=== PATIENT | female | born 1930 | race African-American/Black ===

== ENCOUNTER → 2017-02-18 | Outpatient (CLI) | payer MEDICARE, BC ==
[~2017-02-18] MED LIST: AMLO10TA80 PO; ASPI-1159 PO; MELO-106 PO; MONT10TA24 PO; PANT40TA4
== END | disposition home or self-care (01) ==
LOC: NM 07:39
PROVIDERS: ATTEND Internal Medicine
DX: E05.90 Thyrotoxicosis, unspecified without thyrotoxic crisis or storm (principal)
CPT/HCPCS: 78014; A9516

== ENCOUNTER 2017-10-22 08:00 | Inpatient (IN) | payer MEDICARE, BC ==
[~2017-10-22] VITALS: Ht 163.8 cm; Wt 81.2 kg
[~2017-10-22 08:00] MED LIST changes: -PANT40TA4; +PANT40TA4 PO; +TAP5 PO
[2017-10-22] MEDS ORDERED: SODIUM CHLORIDE 0.9% 1,000 ML IV ONE (08:36)
[2017-10-22] MEDS ORDERED: MECLIZINE 25MG TABLET PO ONE (08:45)
[2017-10-22 09:19] LABS: HEMATOCRIT. 40.7 % (36.0-48.0); HEMOGLOBIN. 13.2 g/dL (12.0-16.0); MEAN CORPUSCULAR HEMOGLOBIN 26.7 pg (28.0-32.0); MEAN CORPUSCULAR VOLUME 82.4 fL (81.0-99.0); PLATELET 241 x1000/uL (130-400); RED BLOOD CELL COUNT 4.94 mill/uL (4.2-5.4); RED CELL DISTRIBUTION WIDTH 25.9 % (11.6-14.6)
[2017-10-22 09:26] LABS: CHLORIDE 109 mEq/L (98-107)
[2017-10-22 09:28] LABS: PARTIAL THROMBOPLASTIN TIME 29.5 sec (23.4-31.0); PROTHROMBIN TIME 10.5 sec (9.1-11.1)
[2017-10-22] MEDS ORDERED: ASPIRIN 325MG EC TABLET PO ONE (09:30)
[2017-10-22 11:14] LABS: PLATELET ESTIMATE NORMAL
[2017-10-22] MEDS ORDERED: FOLI-43 MT (11:47)
[2017-10-22] MEDS ORDERED: FERR325T6 MT (11:48)
[2017-10-22] MEDS ORDERED: DICL100G31 TP (13:46)
[2017-10-22] MEDS ORDERED: MONT10TA21 PO (13:46)
[2017-10-22] MEDS ORDERED: SULF1TAB44 MT (13:46)
[2017-10-22] MEDS ORDERED: DOCU250C69 PO (13:46)
[2017-10-22] MEDS ORDERED: TAP5 PO (13:47)
[2017-10-22 14:00] VITALS: BP 140/78
[2017-10-22 14:55] VITALS: BP 140/78
[2017-10-22 16:00] VITALS: BP 131/83
[2017-10-22] MEDS: AMLODIPINE 10MG TABLET PO SCH (16:42)
[2017-10-22] MEDS ORDERED: [UNRECOGNIZED DRUG - OTHER] MT SCH (17:00)
[2017-10-22] MEDS ORDERED: MEDICATION NOT ON FORMULARY EA (Diclofenac Sodium 100 GM) TP SCH (17:00)
[2017-10-22] MEDS ORDERED: SULFAMETHOXAZOLE MT SCH (17:00)
[2017-10-22] MEDS ORDERED: TRIMETHOPRIM MT SCH (17:00)
[2017-10-22] MEDS ORDERED: MEDICATION NOT ON FORMULARY EA (Ferrous Sulfate 1 TAB) MT SCH (17:00)
[2017-10-22] MEDS: FERROUS SULFATE 325MG TABLET PO SCH (18:02)
[2017-10-22 20:00] VITALS: BP 105/66
[2017-10-22] MEDS: MONTELUKAST SODIUM 10MG TABLET PO SCH (20:51)
[2017-10-23] VITALS: BP 111/76
[2017-10-23 04:00] VITALS: BP_SYST 101; BP_SYST 110; BP_SYST 118; BP_DIAS 67; BP_DIAS 71; BP_DIAS 76
[2017-10-23 08:00] VITALS: BP 111/63
[2017-10-23] MEDS: METHIMAZOLE 5MG TABLET PO SCH (08:52)
[2017-10-23] MEDS: FOLIC ACID 1MG TABLET PO SCH (08:53)
[2017-10-23] MEDS: DOCUSATE SODIUM 250MG CAPSULE PO SCH (08:53)
[2017-10-23] MEDS: PANTOPRAZOLE 40MG DR TABLET PO SCH (08:58)
[2017-10-23] MEDS: AMLODIPINE 10MG TABLET PO SCH (08:58)
[2017-10-23] MEDS: FERROUS SULFATE 325MG TABLET PO SCH ×2 (08:58→19:13)
[2017-10-23] MEDS ORDERED: MEDICATION NOT ON FORMULARY EA (Pantoprazole Sodium 40 MG) PO SCH (09:00)
[2017-10-23] MEDS ORDERED: MEDICATION NOT ON FORMULARY EA (Docusate Sodium 250 MG) PO SCH (09:00)
[2017-10-23] MEDS ORDERED: MEDICATION NOT ON FORMULARY EA (Folic Acid 1 TAB) MT SCH (09:00)
[2017-10-23] MEDS ORDERED: FERROUS SULFATE 325MG TABLET PO SCH (09:00)
[2017-10-23 12:00] VITALS: BP_SYST 112; BP_SYST 119; BP_SYST 123; BP_DIAS 61; BP_DIAS 70; BP_DIAS 76
[2017-10-23 16:00] VITALS: BP 121/71
[2017-10-23 20:00] VITALS: BP_SYST 111; BP_SYST 98; BP_DIAS 61; BP_DIAS 73
[2017-10-23] MEDS: MONTELUKAST SODIUM 10MG TABLET PO SCH (21:09)
[2017-10-24] VITALS: BP 98/53
[2017-10-24 04:00] VITALS: BP 136/56
[2017-10-24 08:00] VITALS: BP_SYST 101; BP_SYST 123; BP_SYST 126; BP_DIAS 61; BP_DIAS 79; BP_DIAS 81
[2017-10-24] MEDS: DOCUSATE SODIUM 250MG CAPSULE PO SCH (08:33)
[2017-10-24] MEDS: FOLIC ACID 1MG TABLET PO SCH (08:33)
[2017-10-24] MEDS: AMLODIPINE 10MG TABLET PO SCH (08:33)
[2017-10-24] MEDS: PANTOPRAZOLE 40MG DR TABLET PO SCH (08:33)
[2017-10-24] MEDS: FERROUS SULFATE 325MG TABLET PO SCH (08:33)
[2017-10-24] MEDS: METHIMAZOLE 5MG TABLET PO SCH (08:33)
[2017-10-24 12:00] VITALS: BP 120/65
[2017-10-24 13:48] VITALS: BP 122/74
== END 2017-10-24 15:13 | disposition home or self-care (01) | DRG 149 ==
LOC: ER 08:00 → 6WST 10:23 → EDBEDREQ 10:25 → EDBEDREQTM 10:26 → ENRESERV 12:09
PROVIDERS: ADMIT Internal Medicine; ATTEND Internal Medicine
DX: R42 Dizziness and giddiness (principal); D64.9 Anemia, unspecified; E05.90 Thyrotoxicosis, unspecified without thyrotoxic crisis or storm; E53.8 Deficiency of other specified B group vitamins; I10 Essential (primary) hypertension; I25.10 Atherosclerotic heart disease of native coronary artery without angina pectoris; I48.91 Unspecified atrial fibrillation; J45.909 Unspecified asthma, uncomplicated; K21.9 Gastro-esophageal reflux disease without esophagitis; K57.90 Diverticulosis of intestine, part unspecified, without perforation or abscess without bleeding; Z86.73 Personal history of transient ischemic attack (TIA), and cerebral infarction without residual deficits; Z88.0 Allergy status to penicillin; Z91.041 Radiographic dye allergy status; Z79.82 Long term (current) use of aspirin; R26.9 Unspecified abnormalities of gait and mobility
CPT/HCPCS: 36415; 70450; 70544; 70553; 71045; 80053; 83880; 84484; 85025; 85610; 85730; 93005; 93306; 93880; 96360; 96361; 97162; 97165; 99285; J7030; J8597

== ENCOUNTER → 2017-12-29 | Day surgery (SDC) | payer MEDICARE, BC ==
[~2017-12-29] MED LIST changes: -ASPI-1159 PO; +DICL100G31 TP; +DOCU250C69 PO; +FERR325T6 MT; +FOLI-43 MT; +LIDOCAINE HCL 1% 20ML VIAL (Pyxis) INJ ONE; -MELO-106 PO; +MONT10TA21 PO; -MONT10TA24 PO; +SODIUM BICARBONATE 4% (2.4MEQ) 5ML VIAL IV ONE
== END | disposition home or self-care (01) ==
LOC: RAD 10:23
PROVIDERS: ATTEND Internal Medicine Endocrinology, Diabetes & Metabolism
DX: E04.1 Nontoxic single thyroid nodule (principal); D64.9 Anemia, unspecified; I25.10 Atherosclerotic heart disease of native coronary artery without angina pectoris; I10 Essential (primary) hypertension; K21.9 Gastro-esophageal reflux disease without esophagitis; J45.909 Unspecified asthma, uncomplicated; I48.91 Unspecified atrial fibrillation; Z91.041 Radiographic dye allergy status; Z79.82 Long term (current) use of aspirin; Z79.899 Other long term (current) drug therapy; Z98.890 Other specified postprocedural states; Z88.0 Allergy status to penicillin
CPT/HCPCS: 10022; 76942; 88172; 88173; J3490

== ENCOUNTER 2019-01-09 21:09 | Inpatient (IN) | payer BC, MEDICARE ==
[~2019-01-09] VITALS: Ht 160 cm; Wt 64.9 kg
[~2019-01-09 21:09] MED LIST changes: -LIDOCAINE HCL 1% 20ML VIAL (Pyxis) INJ ONE; -SODIUM BICARBONATE 4% (2.4MEQ) 5ML VIAL IV ONE
[2019-01-10] MEDS ORDERED: MORPHINE SULFATE 4 MG/ML CPJ (NOT FOR IM USE) IV STA (00:31)
[2019-01-10] MEDS ORDERED: ONDANSETRON HCL 4MG/2ML INJ IV STA (00:31)
[2019-01-10] MEDS ORDERED: SODIUM CHLORIDE 0.9% 1,000 ML IV ONE (00:31)
[2019-01-10] MEDS ORDERED: MAGNESIUM/ALUMINUM HYDROXIDE/SIMETHICONE 30ML UDC PO STA (00:31)
[2019-01-10 00:57] LABS: HEMATOCRIT. 44.2 % (36.0-48.0); HEMOGLOBIN. 14.6 g/dL (12.0-16.0); MEAN CORPUSCULAR HEMOGLOBIN 26.3 pg (28.0-32.0); MEAN CORPUSCULAR VOLUME 79.8 fL (81.0-99.0); PLATELET 282 x1000/uL (130-400); RED BLOOD CELL COUNT 5.54 mill/uL (4.2-5.4); RED CELL DISTRIBUTION WIDTH 17.1 % (11.6-14.6)
[2019-01-10 00:58] LABS: CHLORIDE 101 mEq/L (98-107)
[2019-01-10 01:00] LABS: PROTHROMBIN TIME 10.7 sec (9.6-11.0)
[2019-01-10 01:15] LABS: PLATELET ESTIMATE NORMAL
[2019-01-10 06:20] VITALS: BP 119/82
[2019-01-10] MEDS ORDERED: DEXT 5%/0.45% NACL 1000ML 1,000 ML IV SCH (07:30)
[2019-01-10] MEDS ORDERED: POTA20TA82 MT (07:37)
[2019-01-10] MEDS ORDERED: FURO40TA5 PO (07:37)
[2019-01-10] MEDS ORDERED: MECL-109 PO (07:37)
[2019-01-10 08:00] VITALS: BP 127/77
[2019-01-10] MEDS: ONDANSETRON HCL 4MG/2ML INJ IV PRN (08:17)
[2019-01-10] MEDS: PANTOPRAZOLE SODIUM 40 MG/VIAL IV SCH (08:17)
[2019-01-10] MEDS: IPRATROPIUM/ALBUTEROL 0.5-3(2.5)MG/3ML NEB HHN SCH ×4 (10:42→21:34)
[2019-01-10 12:00] VITALS: BP 109/73
[2019-01-10] MEDS: DEXT 5%/0.45% NACL KCL 40MEQ/L 1,000 ML IV SCH (13:00)
[2019-01-10 16:00] VITALS: BP 119/68
[2019-01-10 20:00] VITALS: BP 112/75
[2019-01-11] VITALS: BP 120/73
[2019-01-11] MEDS: IPRATROPIUM/ALBUTEROL 0.5-3(2.5)MG/3ML NEB HHN SCH ×6 (01:30→20:00)
[2019-01-11 02:59] LABS: CLARITY URINE CLEAR (CLEAR); COLOR URINE YELLOW (YELLOW); KETONES URINE NEGATIVE (NEGATIVE); LEUKOCYTE ESTERASE URINE NEGATIVE (NEGATIVE); NITRITE URINE NEGATIVE (NEGATIVE); OCCULT BLOOD URINE NEGATIVE (NEGATIVE); PROTEIN URINE TRACE (NEGATIVE); SPECIFIC GRAVITY URINE 1.021 (1.005-1.030)
[2019-01-11 04:00] VITALS: BP 120/70
[2019-01-11 08:02] VITALS: BP 114/61
[2019-01-11] MEDS: PANTOPRAZOLE SODIUM 40 MG/VIAL IV SCH (08:30)
[2019-01-11 12:00] VITALS: BP 108/63
[2019-01-11] MEDS ORDERED: DIATR MEGLU/DIATRIZOATE SOLN 120ML ONE (12:55)
[2019-01-11] MEDS ORDERED: BARIUM SULFATE 176 GM SUSP.RECON ONE (13:30)
[2019-01-11] MEDS: DEXT 5%/0.45% NACL KCL 40MEQ/L 1,000 ML IV SCH (15:55)
[2019-01-11 16:00] VITALS: BP 116/69
[2019-01-11 20:00] VITALS: BP 113/68
[2019-01-12] VITALS (7 sets, daily range): BP systolic 92–126; BP diastolic 51–76
[2019-01-12] MEDS: IPRATROPIUM/ALBUTEROL 0.5-3(2.5)MG/3ML NEB HHN SCH ×3 (04:00→20:00)
[2019-01-12] MEDS: DEXT 5%/0.45% NACL KCL 40MEQ/L 1,000 ML IV SCH ×2 (04:36→20:26)
[2019-01-12] MEDS: ONDANSETRON HCL 4MG/2ML INJ IV PRN (05:01)
[2019-01-12] MEDS: PANTOPRAZOLE SODIUM 40 MG/VIAL IV SCH (08:25)
[2019-01-12] MEDS ORDERED: HYDROCODONE/ACETAMINOPHEN 5/325MG TABLET PO PRN (22:30)
[2019-01-13] VITALS: BP 128/67
[2019-01-13 04:00] VITALS: BP 120/73
[2019-01-13] MEDS: IPRATROPIUM/ALBUTEROL 0.5-3(2.5)MG/3ML NEB HHN SCH ×6 (04:00→21:27)
[2019-01-13] MEDS: DEXT 5%/0.45% NACL KCL 40MEQ/L 1,000 ML IV SCH (07:40)
[2019-01-13 08:00] VITALS: BP 112/66
[2019-01-13] MEDS: ACETAMINOPHEN 500MG TABLET PO PRN ×2 (08:26→17:10)
[2019-01-13] MEDS: PANTOPRAZOLE SODIUM 40 MG/VIAL IV SCH (08:26)
[2019-01-13 12:00] VITALS: BP 104/67
[2019-01-13] MEDS: ONDANSETRON HCL 4MG/2ML INJ IV SCH ×2 (13:00→17:20)
[2019-01-13 16:00] VITALS: BP 105/74
[2019-01-13 17:40] LABS: HEMATOCRIT. 35.8 % (36.0-48.0); HEMOGLOBIN. 11.7 g/dL (12.0-16.0); MEAN CORPUSCULAR HEMOGLOBIN 26.3 pg (28.0-32.0); MEAN CORPUSCULAR VOLUME 80.6 fL (81.0-99.0); MEAN PLATELET VOLUME 7.7 fl (7.4-10.4); PLATELET 217 x1000/uL (130-400); RED BLOOD CELL COUNT 4.45 mill/uL (4.2-5.4); RED CELL DISTRIBUTION WIDTH 16.8 % (11.6-14.6)
[2019-01-13 17:47] LABS: CHLORIDE 111 mEq/L (98-107)
[2019-01-13 20:00] VITALS: BP 104/65
[2019-01-13 20:00] LABS: PLATELET ESTIMATE NORMAL
[2019-01-13 21:31] LABS: T4 FREE 1.67 ng/dL (0.76-1.46)
[2019-01-14] VITALS: BP 116/71
[2019-01-14] MEDS: IPRATROPIUM/ALBUTEROL 0.5-3(2.5)MG/3ML NEB HHN SCH ×6 (01:48→21:11)
[2019-01-14 04:00] VITALS: BP 114/70
[2019-01-14] MEDS: ONDANSETRON HCL 4MG/2ML INJ IV SCH ×3 (05:38→16:52)
[2019-01-14 08:00] VITALS: BP 104/66
[2019-01-14] MEDS: PANTOPRAZOLE SODIUM 40 MG/VIAL IV SCH (08:19)
[2019-01-14] MEDS: DEXT 5%/0.45% NACL KCL 40MEQ/L 1,000 ML IV SCH (10:35)
[2019-01-14 12:00] VITALS: BP 108/64
[2019-01-14] MEDS: ACETAMINOPHEN 500MG TABLET PO PRN (14:56)
[2019-01-14 16:00] VITALS: BP 104/65
[2019-01-14 20:00] VITALS: BP 113/68
[2019-01-15] VITALS: BP 112/77
[2019-01-15] MEDS: IPRATROPIUM/ALBUTEROL 0.5-3(2.5)MG/3ML NEB HHN SCH ×6 (01:37→21:18)
[2019-01-15] MEDS: DEXT 5%/0.45% NACL KCL 40MEQ/L 1,000 ML IV SCH ×3 (03:31→18:52)
[2019-01-15 04:00] VITALS: BP 101/59
[2019-01-15] MEDS: ONDANSETRON HCL 4MG/2ML INJ IV SCH ×3 (06:32→18:53)
[2019-01-15 08:00] VITALS: BP 93/63
[2019-01-15] MEDS: PANTOPRAZOLE SODIUM 40 MG/VIAL IV SCH (09:51)
[2019-01-15 12:00] VITALS: BP 94/64
[2019-01-15 16:00] VITALS: BP 104/73
[2019-01-15 17:06] LABS: ANTI-NUCLEAR ANTIBODIES DIRECT Negative (Negative)
[2019-01-15 20:00] VITALS: BP 99/72
[2019-01-16] VITALS: BP 99/69
[2019-01-16] MEDS: IPRATROPIUM/ALBUTEROL 0.5-3(2.5)MG/3ML NEB HHN SCH ×5 (02:25→21:52)
[2019-01-16 04:00] VITALS: BP 96/66
[2019-01-16] MEDS: ONDANSETRON HCL 4MG/2ML INJ IV SCH ×3 (06:38→17:46)
[2019-01-16 08:00] VITALS: BP 91/59
[2019-01-16] MEDS: PANTOPRAZOLE SODIUM 40 MG/VIAL IV SCH (09:56)
[2019-01-16 12:00] VITALS: BP 100/67
[2019-01-16] MEDS: METOCLOPRAMIDE HCL 10MG/2ML VIAL IV SCH ×2 (13:06→18:26)
[2019-01-16 16:00] VITALS: BP 91/69
[2019-01-16] MEDS: DEXT 5%/0.45% NACL KCL 40MEQ/L 1,000 ML IV SCH (17:46)
[2019-01-16 20:00] VITALS: BP 109/73
[2019-01-16] MEDS: HEMORRHOIDAL SUPP PR SCH (22:08)
[2019-01-16] MEDS: DEXT 5%/0.45% NACL 1000ML 1,000 ML IV SCH (23:25)
[2019-01-16] MEDS ORDERED: ONDANSETRON HCL 4MG/2ML INJ IV NR (23:27)
[2019-01-16] MEDS ORDERED: ONDANSETRON HCL 4MG/2ML INJ IV PRN (23:28)
[2019-01-17] VITALS: BP 110/71
[2019-01-17] MEDS: IPRATROPIUM/ALBUTEROL 0.5-3(2.5)MG/3ML NEB HHN SCH ×7 (01:15→21:34)
[2019-01-17 04:00] VITALS: BP 103/60
[2019-01-17] MEDS: ONDANSETRON HCL 4MG/2ML INJ IV SCH ×3 (05:58→17:51)
[2019-01-17] MEDS: METOCLOPRAMIDE HCL 10MG/2ML VIAL IV SCH ×4 (05:58→17:52)
[2019-01-17 07:54] LABS: HEMATOCRIT. 37.9 % (36.0-48.0); HEMOGLOBIN. 12.4 g/dL (12.0-16.0); MEAN CORPUSCULAR HEMOGLOBIN 26.2 pg (28.0-32.0); MEAN CORPUSCULAR VOLUME 80.1 fL (81.0-99.0); MEAN PLATELET VOLUME 7.8 fl (7.4-10.4); PLATELET 172 x1000/uL (130-400); RED BLOOD CELL COUNT 4.72 mill/uL (4.2-5.4); RED CELL DISTRIBUTION WIDTH 16.9 % (11.6-14.6)
[2019-01-17 07:58] LABS: CHLORIDE 113 mEq/L (98-107)
[2019-01-17 08:00] VITALS: BP 132/57
[2019-01-17] MEDS: HEMORRHOIDAL SUPP PR SCH ×2 (09:15→20:48)
[2019-01-17] MEDS: DEXT 5%/0.45% NACL 1000ML 1,000 ML IV SCH (09:15)
[2019-01-17] MEDS: PANTOPRAZOLE SODIUM 40 MG/VIAL IV SCH (09:15)
[2019-01-17 12:00] VITALS: BP 104/59
[2019-01-17 13:10] LABS: SACCHAROMYCES CEREVISIAE IGG 25.9 Units (0.0-24.9); SACCHAROMYCES CEREVISIAE IGM <20.0 Units (0.0-24.9)
[2019-01-17 14:10] LABS: ATYPICAL pANCA <1:20 titer (Neg:<1:20)
[2019-01-17 17:56] LABS: PLATELET ESTIMATE NORMAL
[2019-01-17] MEDS: DEXT 5%/0.45% NACL KCL 40MEQ/L 1,000 ML IV SCH (18:20)
[2019-01-17 20:00] VITALS: BP 102/70
[2019-01-18] VITALS: BP 93/54
[2019-01-18] MEDS: DEXT 5%/0.45% NACL 1000ML 1,000 ML IV SCH ×2 (00:06→15:46)
[2019-01-18 04:00] VITALS: BP 93/56
[2019-01-18] MEDS: ONDANSETRON HCL 4MG/2ML INJ IV SCH (07:20)
[2019-01-18 07:36] LABS: CHLORIDE 114 mEq/L (98-107)
[2019-01-18] MEDS: DEXT 5%/0.45% NACL KCL 40MEQ/L 1,000 ML IV SCH ×2 (07:40→21:00)
[2019-01-18 07:57] LABS: HEMATOCRIT. 33.6 % (36.0-48.0); HEMOGLOBIN. 10.9 g/dL (12.0-16.0); MEAN CORPUSCULAR HEMOGLOBIN 26.2 pg (28.0-32.0); MEAN CORPUSCULAR VOLUME 80.8 fL (81.0-99.0); MEAN PLATELET VOLUME 8.1 fl (7.4-10.4); PLATELET 137 x1000/uL (130-400); RED BLOOD CELL COUNT 4.16 mill/uL (4.2-5.4)
[2019-01-18 08:00] VITALS: BP 99/62
[2019-01-18] MEDS: IPRATROPIUM/ALBUTEROL 0.5-3(2.5)MG/3ML NEB HHN SCH ×5 (08:00→20:00)
[2019-01-18] MEDS: HEMORRHOIDAL SUPP PR SCH ×2 (09:15→20:33)
[2019-01-18] MEDS: PANTOPRAZOLE SODIUM 40 MG/VIAL IV SCH (09:15)
[2019-01-18 20:00] VITALS: BP 116/66
[2019-01-18 20:47] LABS: PLATELET ESTIMATE NORMAL
[2019-01-19] VITALS: BP 111/67
[2019-01-19] MEDS: IPRATROPIUM/ALBUTEROL 0.5-3(2.5)MG/3ML NEB HHN SCH ×8 (01:30→21:56)
[2019-01-19 04:00] VITALS: BP 93/59
[2019-01-19] MEDS: DEXT 5%/0.45% NACL 1000ML 1,000 ML IV SCH ×3 (04:32→21:16)
[2019-01-19] MEDS: PANTOPRAZOLE SODIUM 40 MG/VIAL IV SCH (09:00)
[2019-01-19] MEDS: HEMORRHOIDAL SUPP PR SCH ×2 (09:00→21:15)
[2019-01-19 20:00] VITALS: BP 99/61
[2019-01-20] VITALS (7 sets, daily range): BP systolic 92–117; BP diastolic 56–72
[2019-01-20] MEDS: IPRATROPIUM/ALBUTEROL 0.5-3(2.5)MG/3ML NEB HHN SCH ×4 (01:30→16:39)
[2019-01-20] MEDS: DEXT 5%/0.45% NACL 1000ML 1,000 ML IV SCH (06:44)
[2019-01-20] MEDS: HEMORRHOIDAL SUPP PR SCH (09:00)
[2019-01-20] MEDS: PANTOPRAZOLE SODIUM 40 MG/VIAL IV SCH (09:28)
== END 2019-01-20 18:03 | disposition home health service (06) | DRG 389 ==
LOC: ER 21:09 → 6EST 01-10 01:28 → EDBEDREQ 01-10 01:34 → EDBEDREQTM 01-10 01:34 → EDBEDREQSVC 01-10 01:34 → ENRESERV 01-10 04:00
PROVIDERS: ADMIT Internal Medicine; ATTEND Internal Medicine
DX: K56.600 Partial intestinal obstruction, unspecified as to cause (principal); E87.2 Acidosis; E44.1 Mild protein-calorie malnutrition; K57.50 Diverticulosis of both small and large intestine without perforation or abscess without bleeding; K55.20 Angiodysplasia of colon without hemorrhage; I10 Essential (primary) hypertension; J45.909 Unspecified asthma, uncomplicated; K21.9 Gastro-esophageal reflux disease without esophagitis; M19.90 Unspecified osteoarthritis, unspecified site; J45.20 Mild intermittent asthma, uncomplicated; E05.90 Thyrotoxicosis, unspecified without thyrotoxic crisis or storm; Z87.11 Personal history of peptic ulcer disease; Z88.0 Allergy status to penicillin; Z90.710 Acquired absence of both cervix and uterus; Z68.25 Body mass index [BMI] 25.0-25.9, adult; Z90.49 Acquired absence of other specified parts of digestive tract; Z88.8 Allergy status to other drugs, medicaments and biological substances; Z91.041 Radiographic dye allergy status; Z79.899 Other long term (current) drug therapy
CPT/HCPCS: 36415; 71045; 74018; 74176; 74249; 81003; 83605; 84439; 84443; 84481; 84484; 86038; 86141; 86256; 86671; 87015; 87045; 87427; 87449; 89055; 93005; 94640; 97116; 97162; 99285; A6261; C1893; C9113; J2270; J2405; J2765; J7030; J7620; Q9963